=== PATIENT | female | born 1940 | race Caucasian/White ===

== ENCOUNTER → 2024-03-02 | Outpatient (CLI) | payer MEDICARE, BC ==
[2024-03-02 14:23] LABS: Basophils # (A) 0.04 X 10*3/uL (0.00-0.10); Basophils % (A) 0.6 %; Eosinophils # (A) 0.07 X 10*3/uL (0.04-0.35); Eosinophils % (A) 1.1 %; HGB 14.7 g/dL (12.0-15.0); Lymphocytes % (A) 12.4 %; MCH 31.2 pg (27.0-32.0); MCHC 32.7 g/dL (32.0-37.0); MCV 95.5 FL (80.0-97.0); Mean Platelet Volume 10.5 FL (9.5-12.2); Monocytes # (A) 0.75 X 10*3/uL (0.20-1.00); Monocytes % (A) 11.7 %; NRBC Per 100 WBC 0 X 10*3/uL (0.00-0.01); Neutrophils # (A) 4.76 X 10*3/uL (1.80-7.70); Platelet Count 240 X 10*3/uL (140-440); RBC 4.71 X 10*6/uL (4.10-5.20); RDW 13.2 % (11.5-14.5); WBC 6.43 X 10*3/uL (4.50-10.00)
[2024-03-02 14:39] LABS: ALT 17 U/L (8-44); AST 18 U/L (13-35); Albumin 4.2 g/dL (3.8-4.9); Albumin/Globulin Ratio 1.27 Ratio (1.60-3.17); Alkaline Phosphatase 106 U/L (41-126); BUN/Creat Ratio 17.12 Ratio (12.00-20.00); Blood Urea Nitrogen 13.7 mg/dL (9.0-27.0); Calcium 9.4 mg/dL (8.7-10.3); Carbon Dioxide 26.6 mmol/L (21.6-31.8); Chloride 102 mmol/L (96-109); Chol/HDL Ratio 4.12 Ratio; Globulin 3.3 g/dL (1.6-3.3); Glucose 110 mg/dL (70-110); LDL Cholesterol,Calculated 145.3 mg/dL (0.0-131.0); Potassium 4.4 mmol/L (3.5-5.5); Sodium 140 mmol/L (135-145); Total Bilirubin 0.7 mg/dL (0.3-1.2); Total Protein 7.5 g/dL (6.2-8.2)
== END | disposition home or self-care (01) ==
LOC: LABWHC1 09:59
PROVIDERS: ATTEND Internal Medicine
DX: Z11.59 Encounter for screening for other viral diseases (principal); E78.5 Hyperlipidemia, unspecified; R73.9 Hyperglycemia, unspecified
CPT/HCPCS: 36415; 80053; 80061; 83036; 85025; 86803

== ENCOUNTER → 2024-07-08 | Outpatient (CLI) | payer MEDICARE, BC ==
[2024-07-08 19:44] LABS: Appearance,Urine Clear (Clear); Bilirubin,Urine Negative (Negative); Blood,Urine Negative (Negative); Color,Urine Yellow (Yellow); Ketones,Urine 15 (Negative); Nitrite,Urine Negative (Negative); Specific Gravity,Urine 1.015 (1.001-1.030); Urobilinogen,Urine 0.2 E.U./DL
[2024-07-08 19:57] LABS: Bacteria,Urine None Seen (None Seen)
[2024-07-08 20:08] LABS: HCT 43.7 % (37.2-46.3); HGB 14.1 g/dL (12.0-15.0); MCH 30.7 pg (27.0-32.0); MCHC 32.3 g/dL (32.0-37.0); MCV 95.2 FL (80.0-97.0); Mean Platelet Volume 9.9 FL (9.5-12.2); NRBC Per 100 WBC 0 X 10*3/uL (0.00-0.01); Platelet Count 298 X 10*3/uL (140-440); RBC 4.59 X 10*6/uL (4.10-5.20); RDW 13.3 % (11.5-14.5); WBC 5.57 X 10*3/uL (4.50-10.00)
[2024-07-08 20:22] LABS: ALT 13 U/L (8-44); AST 15 U/L (13-35); Albumin/Globulin Ratio 1.11 Ratio (1.60-3.17); Alkaline Phosphatase 94 U/L (41-126); Blood Urea Nitrogen 14.3 mg/dL (9.0-27.0); Calcium 9.3 mg/dL (8.7-10.3); Carbon Dioxide 24.7 mmol/L (21.6-31.8); Chloride 98 mmol/L (96-109); Globulin 3.6 g/dL (1.6-3.3); Glucose 102 mg/dL (70-110); Potassium 4.4 mmol/L (3.5-5.5); Sodium 135 mmol/L (135-145); Total Bilirubin 0.4 mg/dL (0.3-1.2); Total Protein 7.6 g/dL (6.2-8.2)
== END | disposition home or self-care (01) ==
LOC: LABPAT 13:53
PROVIDERS: ATTEND Orthopaedic Surgery
CPT/HCPCS: 80053; 81001; 83036; 85027; 86850; 86900; 86901; 93005

== ENCOUNTER 2024-07-14 13:51 | Inpatient (IN) | payer MEDICARE, BC ==
[~2024-07-14 13:51] MED LIST: HYDROmorphone 0.5 MG/0.5 ML SYRINGE IVP PRN; LIDOCAINE 1% (10MG/ML) FOR IV START INTRADERMA PRN; ONDANSETRON 4 MG/2 ML VIAL IVP PRN; TRANEXAMIC 1,000 MG/100ML-NACL 1,000 MG in SALINE 1 100ML.BAG IV PRN; TRANEXAMIC 1,000 MG/100ML-NACL 1,000 MG in SALINE 1 100ML.BAG IVPB PRN; fentaNYL (PF) 50 MCG/ML 2 ML AMP IVP PRN
[2024-07-14] MEDS: ACETAMINOPHEN TAB 500 MG TAB PO PRN (14:51)
[2024-07-14] MEDS: DOCUSATE 100 MG CAP PO PRN (14:51)
[2024-07-14] MEDS: oxyCODONE ER 10 MG TAB.ER.12H PO PRN (14:52)
[2024-07-14] MEDS: LACTATED RINGERS 1,000 ML IV SCH (15:17)
[2024-07-14] MEDS: DEXAMETHASONE SOD PHOSPHATE 10 MG/ML 1 ML VIAL IV PRN (15:17)
[2024-07-14] MEDS: KETOROLAC 15 MG/ML 1 ML VIAL IVP PRN (15:17)
[2024-07-14] MEDS: FAMOTIDINE 20 MG/2 ML VIAL IVP PRN (15:17)
[2024-07-14] MEDS: ONDANSETRON 4 MG/2 ML VIAL IVP ONE (15:17)
[2024-07-14] MEDS: VANCOMYCIN 1,000 MG in SODIUM CHLORIDE 0.9% 250 ML IVPB PRN (15:22)
[2024-07-14] MEDS: MIDAZOLAM 2 MG/2 ML VIAL IV PRN (15:24)
[2024-07-14] MEDS: IV FLUID CONTINUATION 1,000 ML IV ONE (15:25)
--- NOTE | 2024-07-14 15:31 | P.ANPRN ---
Procedure Note - Anesthesia - Nerve Block Performed Left Víctor Single Date of Procedure: 07/14/24 Procedure Start Time: 15:22 Procedure Stop Time: 15:27 Location of Patient: PreOp Indication: Acute Post-Operative Pain, Analgesia, Requested by Surgeon Sedation Type: Sedate with meaningful contact maintained Preparation: Sterile Prep Position: Supine Catheter: None Needle Types: Pajunk Needle Gauge: 21 Ultrasound used to visualize needle placement: Yes Ultrasound used to observe medication spread: Yes Injectate: 0.5% Ropivacaine (see comment for volume) (Ropiv 20ml+Decadron 4mg.) Blood Aspirated: No Pain Paresthesia on Injection Noted: No Resistance on Injection: Normal Image Stored and Saved: Yes Events: Uneventful and Well Tolerated
[2024-07-14] MEDS ORDERED: GLYCOPYRROLATE 0.2 MG/ML 2 ML VIAL ONE (16:05)
[2024-07-14] MEDS ORDERED: ceFAZolin 1 GM/50 ML BAG (PMX) ONE (16:05)
[2024-07-14] MEDS ORDERED: ROCURONIUM 10 MG/ML (5 ML VIAL) IV ONE (16:05)
[2024-07-14] MEDS ORDERED: LIDOCAINE 1% INJ 10MG/ML (20 ML MDV) ONE (16:05)
[2024-07-14] MEDS ORDERED: ROPIVACAINE 5 MG/ML 30 ML VIAL ONE (16:05)
[2024-07-14] MEDS ORDERED: fentaNYL (PF) 50 MCG/ML 2 ML AMP ONE (16:05)
[2024-07-14] MEDS ORDERED: DEXAMETHASONE SOD PHOSPHATE 4 MG/ML 1 ML VIAL ONE (16:05)
[2024-07-14] MEDS ORDERED: NEOSTIGMINE 1 MG/ML 10 ML VIAL ONE (16:05)
[2024-07-14] MEDS ORDERED: PHENYLEPHRINE 10 MG/ML VIAL ONE (16:05)
[2024-07-14] MEDS ORDERED: SUCCINYLCHOLINE CHLORIDE 200 MG/10 ML VIAL IV ONE (16:05)
[2024-07-14] MEDS ORDERED: PROPOFOL 10 MG/ML 20 ML VIAL IV ONE (16:05)
[2024-07-14] MEDS ORDERED: ePHEDrine 50 MG/ML 1 ML VIAL ONE (16:05)
[2024-07-14] MEDS: SODIUM CHLORIDE 0.9% 100 ML with ceFAZolin 2,000 MG IV ONE (16:30)
[2024-07-14] MEDS: ROPIVACAINE/EPI/CLONIDINE/KET 50 ML SYRINGE MISCELLANE PRN (16:45)
[2024-07-14] MEDS: EPINEPHrine 2 MG in SODIUM CHLORIDE 0.9% 200 ML IV ONE (16:49)
[2024-07-14] MEDS ORDERED: NALOXONE 0.4 MG/ML 1 ML VIAL IV PRN (17:59)
[2024-07-14] MEDS ORDERED: HYDROmorphone 0.5 MG/0.5 ML SYRINGE IVP PRN ×2 (17:59)
[2024-07-14] MEDS ORDERED: MAGNESIUM HYDROXIDE 2,400 MG/30 ML CUP PO PRN (17:59)
[2024-07-14] MEDS ORDERED: hydrOXYzine pamoate 25 MG CAP PO PRN (17:59)
[2024-07-14] MEDS: LACTATED RINGERS 1,000 ML IV ONE (18:02)
--- NOTE | 2024-07-14 18:12 | FL ---
EXAMINATION TYPE: FL guidance operating room, XR Hip Limited LT DATE OF EXAM: 07/14/2024 6:06 PM COMPARISON: Pre Operative Images if available both CT/MRI or plain film CLINICAL INDICATION: Female, 84 years old with history of Left Hip-Ant; TECHNIQUE: FL guidance operating room, XR Hip Limited LT, multiple fluoroscopic images provided for p rocedure. Total fluoroscopy time: 36 seconds Total submitted images to PACS: 6 DAP: 0.9842 mGym2 Gycm2 uGym2 cGycm2 or equivalent. FINDINGS: Fluoroscopic images during internal fixation/arthroplasty demonstrate fixation hardware in appropriat e position. Hardware appears intact. No immediate complication identified. IMPRESSION: 1. No evidence for intraoperative complication. 2. Please see the operative/procedural note for further details. [facility], , 07/14/2024 6:10 PM
--- NOTE | 2024-07-14 18:17 | P.OP ---
Date of Procedure: 07/14/24 Preoperative Diagnosis: Severe left hip arthritis Postoperative Diagnosis: Same Procedure(s) Performed: left direct anterior total hip arthroplasty Implants: 1. Fili Trident II Acetabular Cup, Size #54 2. [place] Accolade C Size #5 Femoral Stem, High Offset 3. Biolox delta femoral head, 36 mm, -5mm neck Anesthesia: GLORIA, regional Surgeon: Oscar Clay Testing Analyst #1: Levy Sidhu Estimated Blood Loss (ml): 200 IV fluids (ml): 800 Pathology: none sent Condition: stable Disposition: PACU Indications for Procedure: I had a long discussion with the patient in the office on the potential risks and complications of an elective total hip replacement through a direct anterior approach. Risks discussed include, but are certainly not limited to, risks from anesthesia, superficial infection requiring local wound care or antibiotics, deep jason-prosthetic joint infection and the treatment required to eradicate infection, intraoperative fracture, postoperative periprosthetic fracture, da mage to local blood vessels or nerves particularly the lateral femoral cutaneous nerve, delayed wound healing requiring local wound care or possibly surgical debridement, hip dislocation, leg length discrepancy, soft tissue irritation around the total hip implant such as iliopsoas tendinitis or trochanteric bursitis, wear and osteolysis from the implants, squeaking or audible noises, groin pain, thigh pain, heterotopic ossification, stiffness, aseptic loosening of the implants, dissatisfaction with surgical outcome, need for revision surgery, DVT, PE, swelling of the operative extremity, acute coronary event, stroke, failure to thrive, and possibly loss of life or limb. The patient understands that while these are the most common complications after an elective hip replacement there are certainly other less common complications possible. They were given ample time to ask questions regarding the potential complications of a hip replacement. Following our discussion the patient provid ed their verbal and written consent to go forward with an elective total hip replacement. Description of Procedure: The patient was identified in the preoperative holding area and the correct hip was marked with my initials. I reviewed the procedure and consent with the patient. All of their questions were answered. The patient was then brought back into the operating room by anesthesia. While on the [facility] anesthesia was administered by the anesthesia team. Preoperative antibiotics and tranexamic acid were also given. After the patient was under anesthesia I examined their ankles to determine their preoperative leg length discrepancy. The skin over the anterior aspect of the hip was shaved to remove hair over the site of planned incision. Both feet and ankles were padded with webril and boots for the Soldier were applied. The patient was then carefully transferred onto the Soldier table. A perineal post was immediately placed. The arms were placed on arm holders and were well-padded. Both boots were secured to the spars on the Soldier table. The patient was positioned so that the pelvis was centered over the post. Nonsterile drapes were applied. A timeout was performed identifying the correct patient, operative extremity, and procedure. At this point fluoroscopy was brought in to take preoperative images of the pelvis and operative hip. Using the standing AP pelvis from the office as a template, a comparable image was obtained with fluoroscopy. A metallic bar was used to create a bi-ischial line for use as a reference to leg length adjustments during the procedure. Global offset was also measured on both the operative and nonoperative leg. Fluoroscopy was then brought out and a pre-scrub using a chlorhexidine scrub brush was performed. The operative limb was then prepped and draped in the standard sterile fashion. An anterior longitudinal incision was made lateral and distal to the ASIS. The skin and subcutaneous tissues were incised sharply. The underlying tensor fascia was identified and incised in its midportion. The fascia was dissected free from the underlying muscle and the muscle belly was retracted. A blunt tip ped cobra retractor was placed over the superior neck under the muscle fibers of the gluteus minimus. The deep enveloping fascia of the tensor was incised. The anterior leash of vessels were then identified and cauterized. The fascia between the rectus and the capsule was then incised and the pre-capsular fat was excised. A second Cobra was placed inferior to the neck. The interval between the rectus and iliocapsularis and the hip capsule was developed and a retractor was placed carefully over the anterior rim of the acetabulum. A T-shaped anterior capsulotomy was performed. The superior capsular leaflet was left in place in the inferior capsular flap was excised. The Cobra retractors were placed intracapsularly. We then made a femoral neck osteotomy according to preoperative and intraoperative templating and confirmed the level of the osteotomy using fluoroscopic imaging. The femoral head was removed, passed off to the back table, and sized. The superior capsular flap was excised. Retractors were placed circumferentially exposing the acetabulum. We then circumferentially debrided the acetabulum free of labrum and osteophytes. The pulvinar was removed to fully visualize the cotyloid fossa. We then sequentially reamed to achieve peripheral fit and excellent bleeding subchondral bone. The socket was thoroughly irrigated. The acetabular component was impacted into the appropriate position using fluoroscopy to guide version, inclination, and depth of insertion taking care to have a comparable image of the AP pelvis to the standing image taken in the office. An excellent press-fit was achieved and final position was confirmed using fluoroscopy. The press fit was augmented with bony cancellus dome screws. The liner was then impacted into the socket. Attention was then turned to the femur. The remnant dorsal lateral capsule was excised. The short external rotators were visible and protected. A bone hook was used to confirm appropriate translation of the trochanter away from the acetabulum. The leg was then extended and adducted and the bone hook was used to elevate the femur for broaching. On inspection of the patient's proximal femur, they appeared to have poor bone quality so I elected to proceed with cemented fixation of the femoral component. A box osteotome and blunt tipped canal sound was then utilized to gain access to the femoral canal. We then sequentially broached the femur in appropriate anteversion until torsional stability was achieved and the implant was felt to have reached the appropriate size to allow trialing. The neck cut was brought flush to the trial broach with a calcar planar. A trial neck and head were then placed onto the broach and the hip was atraumatically reduced under direct visualization. External rotation to 90 was performed to assess stability. Fluoroscopy was brought in. An AP and lateral fluoroscopic image of the proximal femur was obtained to assess position and fill of the trial broach. An AP of the pelvis was then obtained and matched to the preoperative image taken. A bi-ischial bar was then placed and measurements were taken to assess changes in length and offset. The hip was then carefully dislocated, the proximal femur was exposed, and the trial implants were removed. The proximal femur was then prepared for cementing. The canal was thoroughly irrigated with pulsatile lavage to remove blood and marrow contents. A cement restrictor was placed to a depth just distal to the tip of the final implant. Epinephrine-soaked gauze was then packed into the proximal femur. 2 bags of cement were then mixed using a centrifuge and placed into a cement gun. Anesthesia was notified that cementing was about to commence to make sure the patient was appropriately ventilated and hydrated. Once the cement had reached appropriate consistency, the cement gun was used to fill the canal in a retrograde fashion starting at the restrictor. Cement was then pressurized into the canal with a blue tipped administrative assistant coordinator. The stem was then carefully introduced into the cement taking care to guide the implant into appropriate version. The stem was held in position until the cement had fully set. All extra cement was removed while the cement was hardening. The trunnion was cleansed and the final head was tapped into place to engage the Loyd taper. The acetabulum was irrigated and visualized to be free of debris. The hip was carefully reduced. Stability was checked clinically with external rotation to 90 and there was no evidence of instability. Final fluoroscopic images were taken. The wound was then thoroughly irrigated and soaked with a dilute Betadine rinse for 3 minutes. 3 L of sterile saline was irrigated through the wound using pulsatile lavage. Local anesthetic cocktail was injected into the soft tissues around the surgical field. The wound was then closed in layers. A sterile dressing was placed over the surgical incision. The drapes were taken down and the patient was carefully transferred off of the Soldier table. Following removal of the boots the leg lengths felt acceptable. The patient was then taken to recovery room having tolerated the procedure well. Levy Sidhu PA-C was required as a skilled assistant professor of anthropology due to the complexity of surgery for patient positioning, draping, exposure, retraction, closure of wound, and application of dressing. PLAN: The patient can weight-bear as tolerated on the operative extremity. 2 doses of postoperative antibiotics. DVT prophylaxis with aspirin 81 mg twice a day based on preoperative risk stratification. Physical therapy for gait training.
[2024-07-14] MEDS: DEXAMETHASONE SOD PHOSPHATE 4 MG/ML 1 ML VIAL IV ONE (19:47)
[2024-07-14] MEDS: SODIUM CHLORIDE 0.9% 1,000 ML IV SCH (20:49)
[2024-07-14] MEDS: SENNOSIDES-DOCUSATE SODIUM 1 EACH TAB PO SCH (20:51)
[2024-07-14] MEDS: ASPIRIN 81 MG PO SCH (20:51)
--- NOTE | 2024-07-14 22:08 | P.CONS ---
History of Present Illness - Reason for Consult Consult date: 07/14/24 Medical management Requesting physician: Oscar Clay - Chief Complaint Left hip surgery - History of Present Illness Very pleasant 84-year-old patient who follows with Elise Trevizo. Patient is undergone left total hip arthroplasty. Postprocedure sitting up in bed. Comfortable. No nausea vomiting. No cardiac history.. Has a history of high cholesterol but manages it by diet Review of systems: GEN.: None EYES: None HEENT: None NECK: None RESPIRATORY: None CARDIOVASCULAR: None GASTROINTESTINAL: None GENITOURINARY: Urinary urgency MUSCULOSKELETAL: Joint pains LYMPHATICS: None HEMATOLOGICAL: None PSYCHIATRY: None NEUROLOGICAL: [Sometimes trouble sleeping Social history: Did smoke in the past. Lives alone. Physical examination: VITAL SIGNS: 97.3, 66, 12, 138 x 71, 98% room air GENERAL: BMI 26.3, reclining bed awake comfortable. EYES: Pupils equal. Conjunctiva iggi l. HEENT: External appearance of nose and ears normal, oral cavity grossly normal. NECK: JVD not raised; masses not palpable. HEART: First and second heart sounds are normal; no edema. LUNGS: Respiratory rate normal; clear to auscultation. ABDOMEN: Soft, nontender, liver spleen not palpable, no masses palpable. PSYCH: Alert and oriented x3; mood and affect gigi l. MUSCULOSKELETAL:No Clubbing/cyanosis;muscles-grossly intact. OA. Dressing over the left hip incision site NEUROLOGICAL: Cranial nerves grossly intact; no facial asymmetry, power and sensation grossly intact. LYMPHATICS: No lymph nodes palpable in the axilla and neck INVESTIGATIONS, reviewed in the clinical context: July 08, 2024: White count 5.5 hemoglobin 14.1 platelets 298 sodium 135 potassium 4.4 creatinine 1.1 Assessment plan: -Left total hip arthroplasty Pain management. Received 1 dose of Decadron. Aspirin for DVT prophylaxis. -Primary osteoarthritis Tylenol as needed -Insomnia Melatonin as needed -Chronic urinary urge incontinence Currently patient not requiring medications -Hypercholesteremia Diet controlled -Full code Care was discussed with patient. Questions answered. Thank you Dr. Clay Past Medical History Additional Past Medical History / Comment(s): recent tx for UTI per UA, 3 days bactrim, no symptoms per pt. recent episode of feeling weak and limp. no issues before or since. Dr Trevizo aware.( see HX), urinary urgency, left hip pain History of Any Multi-Drug Resistant Organisms: None Reported Past Surgical History: Hysterectomy Additional Past Surgical History / Comment(s): colonoscopy, Past Anesthesia/Blood Transfusion Reactions: No Reported Reaction Smoking Status: Former smoker - Past Family History Mother Family Medical History: Cancer Daughter(s) Family Medical History: Cancer Additional Family Medical History / Comment(s): uterine cancer Medications and Allergies Home Medications Medication Instructions Recorded Confirmed Type Aspirin 81 mg PO Q48H 07/09/24 07/09/24 History Mupirocin 2% Oint [Bactroban 2% 1 applic NASAL DIRECTED 07/09/24 07/14/24 History Oint] Unk Multi Vitamin 1 tab PO DAILY 07/09/24 07/09/24 History Unk Vitamin B12 1 tab PO DAILY 07/09/24 07/09/24 History Unk Vitamin D3 1 tab PO DAILY 07/09/24 07/09/24 History Allergies Allergy/AdvReac Type Severity Reaction Status Date / Time No Known Allergies Allergy Verified 07/14/24 12:52 Physical Exam Vitals: Vital Signs Temp Pulse Resp BP Pulse Ox 07/14/24 19:13 66 12 138/71 98 07/14/24 18:58 69 16 154/71 97 07/14/24 18:43 73 12 166/78 100 07/14/24 18:28 97.3 F L 86 16 176/81 100 07/14/24 15:28 59 L 16 136/68 98 07/14/24 15:06 98.1 F 66 18 180/93 98 Intake and Output 07/14/24 07/14/24 07/14/24 06:59 14:59 22:59 Intake Total 1201 Output Total 200 Balance 1001 Intake: IV 1201 Output: Estimated Blood Loss 200 Other: Weight 73.8 kg
[2024-07-15] MEDS: VANCOMYCIN 1,000 MG in SODIUM CHLORIDE 0.9% 250 ML IVPB ONE (04:22)
[2024-07-15] MEDS: HYDROcodone/APAP 5-325MG 1 EACH TAB PO PRN (08:00)
[2024-07-15] MEDS: FAMOTIDINE 20 MG TAB PO SCH (08:00)
--- NOTE | 2024-07-15 08:16 | P.PN ---
Subjective Progress Note Date: 07/15/24 Principal diagnosis: status post left total hip arthroplasty for left hip osteoarthritis on 07/14/2024. No acute events overnight. Patient is doing well this morning. The pain in their hip is mild. They have walked to the bathroom with a walker and assistance twice. They deny chest pain or shortness of breath. Objective - Vital Signs Vital signs: Vital Signs Temp 97.3 F L 07/15/24 00:15 Pulse 67 07/15/24 00:15 Resp 18 07/15/24 00:15 BP 100/63 07/15/24 00:15 Pulse Ox 94 L 07/15/24 00:15 FiO2 Intake & Output 07/14/24 07/15/24 07/15/24 18:59 06:59 18:59 Intake Total 1201 3240 Output Total 275 325 Balance 926 2915 Weight 73.8 kg Intake: IV 1201 Oral 3240 Output: Urine 75 325 Estimated Blood Loss 200 Other: Voiding Method Toilet # Voids 1 2 - Exam Patient was examined at bedside. Patient is resting comfortably in bed. No apparent distress. They are awake, alert and able to answer questions. On inspection the surgical hip dressing is intact, there is no drainage or strikethrough. The skin surrounding the dressing is free of erythema. There is mild swelling in the operative thigh. Operative femoral nerve function is intact. The patient is able to actively plantarflex and dorsiflex their operative ankle and toes. Their operative foot appears well perfused with capillary refill under 2 seconds. Assessment and Plan Assessment: Postop day #1 status post left total hip arthroplasty for left hip osteoarthritis on 07/14/2024. Plan: Weight-bear as tolerated on the operative extremity. Use a walker to ambulate. Leave surgical dressing in place. Physical therapy for gait training and mobilization. Internal medicine for perioperative medical management. Disposition: Pending physical therapy, I anticipate patient may discharge home or transfer to rehab tomorrow. As of now, plan to stay tonight.
[2024-07-15 08:41] LABS: Basophils # (A) 0.01 X 10*3/uL (0.00-0.10); Basophils % (A) 0.1 %; Eosinophils # (A) 0 X 10*3/uL (0.04-0.35); Eosinophils % (A) 0 %; HCT 35.9 % (37.2-46.3); HGB 11.7 g/dL (12.0-15.0); Lymphocytes # (A) 0.57 X 10*3/uL (0.90-5.00); Lymphocytes % (A) 3.5 %; MCH 30.9 pg (27.0-32.0); MCHC 32.6 g/dL (32.0-37.0); MCV 94.7 FL (80.0-97.0); Mean Platelet Volume 9.9 FL (9.5-12.2); Monocytes # (A) 0.66 X 10*3/uL (0.20-1.00); NRBC Per 100 WBC 0 X 10*3/uL (0.00-0.01); Neutrophils # (A) 15.09 X 10*3/uL (1.80-7.70); Neutrophils % (A) 91.7 %; Platelet Count 269 X 10*3/uL (140-440); RBC 3.79 X 10*6/uL (4.10-5.20); RDW 13.3 % (11.5-14.5); WBC 16.44 X 10*3/uL (4.50-10.00)
[2024-07-15] MEDS: SODIUM FERRIC GLUCONAT-SUCROSE 125 MG in SODIUM CHLORIDE 0.9% 100 ML IVPB ONE (12:40)
[2024-07-15] MEDS: FERROUS SULFATE 325 MG TAB PO SCH (15:50)
--- NOTE | 2024-07-15 15:53 | P.PN ---
Progress Note - Text Progress Note Date: 07/15/24 - Chief Complaint Left hip surgery - History of Present Illness Very pleasant 84-year-old patient who follows with Elise Trevizo. Patient is undergone left total hip arthroplasty. Postprocedure sitting up in bed. Comfortable. No nausea vomiting. No cardiac history.. Has a history of high cholesterol but manages it by diet July 15: Up in a recliner. Doing well. Did work with therapy. Pain controlled. No nausea vomiting. Did tolerate her breakfast. Hemoglobin dropped 11.7 from baseline of 14. Patient will be given 2 doses of IV Ferrlecit. Ferrous sulfate added. Active Medications Hydrocodone Bitart/Acetaminophen (Hydrocodone/Apap 5-325mg 1 Each Tab) 1 each PO Q6HR PRN PRN Reason: Pain Scale 1 to 5 Stop: 08/13/24 17:58 Last Admin: 07/15/24 14:04 Dose: 1 each Hydrocodone Bitart/Acetaminophen (Hydrocodone/Apap 10-325mg 1 Each Tab) 1 each PO Q6H PRN PRN Reason: Pain Scale 6 to 10 Stop: 08/13/24 17:58 Aspirin (Aspirin 81 Mg) 81 mg PO BID [facility] Stop: 08/13/24 20:59 Last Admin: 07/15/24 08:00 Dose: 81 mg Famotidine (Famotidine 20 Mg Tab) 20 mg PO DAILY [facility] Stop: 08/14/24 08:59 Last Admin: 07/15/24 08:00 Dose: 20 mg Hydromorphone HCl (Hydromorphone 0.5 Mg/0.5 Ml Syringe) 0.25 mg IVP Q3HR PRN PRN Reason: Pain Scale 4 to 6 Stop: 08/13/24 17:58 Hydromorphone HCl (Hydromorphone 0.5 Mg/0.5 Ml Syringe) 0.5 mg IVP Q3HR PRN PRN Reason: Pain Scale 7 to 10 Stop: 08/13/24 17:58 Hydromorphone HCl (Hydromorphone 0.5 Mg/0.5 Ml Syringe) 0.125 mg IVP Q3HR PRN PRN Reason: Pain Scale 1 to 3 Stop: 08/13/24 17:58 Hydroxyzine Pamoate (Hydroxyzine Pamoate 25 Mg Cap) 25 mg PO Q4HR PRN PRN Reason: Nausea, Anxiety, Pain Control Stop: 08/13/24 17:58 Lactated Ringer's (Lactated Ringers) 1,000 mls @ 20 mls/hr IV .Q24H [facility] Stop: 08/13/24 06:38 Last Admin: 07/15/24 08:00 Dose: Not Given Sodium Chloride (Saline 0.9%) 1,000 mls @ 100 mls/hr IV .Q10H [facility]NY Stop: 08/13/24 17:59 Last Admin: 07/15/24 14:07 Dose: Not Given Ferric Sodium Gluconate 125 mg (/ Sodium Chloride) 110 mls @ 100 mls/hr IVPB DAILY [facility] Lidocaine HCl (Lidocaine 1% (10mg/Ml) For Iv Start) 0.1 ml INTRADERMA PER PROTOCOL PRN PRN Reason: IV Start Stop: 08/13/24 06:38 Magnesium Hydroxide (Magnesium Hydroxide 2,400 Mg/30 Ml Cup) 2,400 mg PO DAILY PRN PRN Reason: Constipation Stop: 08/13/24 17:58 Naloxone HCl (Naloxone 0.4 Mg/Ml 1 Ml Vial) 0.2 mg IV Q2M PRN PRN Reason: Opioid Reversal Stop: 08/13/24 17:58 Senna/Docusate Sodium (Sennosides-Docusate Sodium 1 Each Tab) 2 each PO HS KENNY Stop: 08/13/24 20:59 Last Admin: 07/14/24 20:51 Dose: 2 each Social history: Did smoke in the past. Lives alone. Physical examination: VITAL SIGNS: 98.3, 69, 15, 93 x 59, 94% room GENERAL: Up in recliner, comfortable EYES: Pupils equal. Conjunctiva gigi l. HEENT: External appearance of nose and ears normal, oral cavity grossly normal. NECK: JVD not raised; masses not palpable. HEART: First and second heart sounds are normal; no edema. LUNGS: Respiratory rate normal; clear to auscultation. ABDOMEN: Soft, nontender, liver spleen not palpable, no masses palpable. PSYCH: Alert and oriented x3; mood and affect gigi l. MUSCULOSKELETAL:No Clubbing/cyanosis;muscles-grossly intact. OA. Dressing over the left hip incision site INVESTIGATIONS, reviewed in the clinical context: July 15: White count 16.4 hemoglobin 11.7 platelets 269 July 08, 2024: White count 5.5 hemoglobin 14.1 platelets 298 sodium 135 potassium 4.4 creatinine 1.1 Assessment plan: -Left total hip arthroplasty Pain management. Received 1 dose of Decadron. Aspirin for DVT prophylaxis -Acute postprocedure blood loss anemia expected from surgery IV Ferrlecit. Ferrous sulfate -Leukocytosis likely reactive. No clinical evidence of infection. No respiratory urinary symptoms.. -Primary osteoarthritis Tylenol as needed -Insomnia Melatonin as needed -Chronic urinary urge incontinence Currently patient not requiring medications -Hypercholesteremia Diet controlled -Full code IV iron. Discussed with patient. Thank you Dr. Clay Past Medical History Additional Past Medical History / Comment(s): recent tx for UTI per UA, 3 days bactrim, no symptoms per pt. recent episode of feeling weak and limp. no issues before or since. Dr Trevizo aware.( see HX), urinary urgency, left hip pain History of Any Multi-Drug Resistant Organisms: None Reported Past Surgical History: Hysterectomy Additional Past Surgical History / Comment(s): colonoscopy, Past Anesthesia/Blood Transfusion Reactions: No Reported Reaction Smoking Status: Former smoker
[2024-07-15] MEDS: HYDROmorphone 0.5 MG/0.5 ML SYRINGE IVP PRN (23:16)
--- NOTE | 2024-07-16 07:10 | P.PN ---
Subjective Progress Note Date: 07/16/24 Principal diagnosis: status post left total hip arthroplasty for left hip osteoarthritis on 07/14/2024. No acute events overnight. Patient is doing well this morning. Yesterday they worked with physical therapy and did very well, it was determined that the patient would transfer home on discharge. Patient states overnight there block wore off and they are experiencing more pain in their hip, it has been hurting with movement in bed. Objective - Vital Signs Vital signs: Vital Signs Temp 97.8 F 07/16/24 01:18 Pulse 63 07/16/24 01:18 Resp 14 07/16/24 05:46 BP 136/78 07/16/24 01:18 Pulse Ox 96 07/16/24 01:18 FiO2 Intake & Output 07/15/24 07/16/24 07/16/24 18:59 06:59 18:59 Intake Total 100 Balance 100 Intake: Intake, IV Titration 100 Amount Sodium Ferric Gluconat- 100 Sucrose 125 mg In Sodium Chloride 0.9% 100 ml @ 100 mls/hr IVPB DAILY [facility] Rx#:[id number] Other: Voiding Method Toilet Toilet # Voids 3 - Exam Patient was examined at bedside. Patient is resting comfortably in bed. No apparent distress. They are awake, alert and able to answer questions. On inspection the surgical hip dressing is intact, there is no drainage or strikethrough. The skin surrounding the dressing is free of erythema. There is mild swelling in the operative thigh. Operative femoral nerve function is intact. The patient is able to actively plantarflex and dorsiflex their operative ankle and toes. Their operative foot appears well perfused with capillary refill under 2 seconds. - Labs CBC & Chem 7: 07/15/24 04:03 Labs: Abnormal Lab Results - Last 24 Hours (Table) 07/15/24 Range/Units 04:03 WBC 16.44 H (4.50-10.00) X 10*3/uL RBC 3.79 L (4.10-5.20) X 10*6/uL Hgb 11.7 L (12.0-15.0) g/dL Hct 35.9 L (37.2-46.3) % Immature Gran # 0.11 H (0.00-0.04) X 10*3/uL Neutrophils # 15.09 H (1.80-7.70) X 10*3/uL Lymphocytes # 0.57 L (0.90-5.00) X 10*3/uL Eosinophils # 0 L (0.04-0.35) X 10*3/uL Assessment and Plan Assessment: Postop day #2 status post left total hip arthroplasty for left hip osteoarthritis on 07/14/2024. Plan: Weight-bear as tolerated on the operative extremity. Use a walker to ambulate. Leave surgical dressing in place. Yesterday they worked with physical therapy and did very well, it was determined that the patient would transfer home on discharge. Internal medicine for perioperative medical management. Disposition: Patient will discharge home at discharge. Plan stay tonight for pain control.
[2024-07-16] MEDS: HYDROcodone/APAP 10-325MG 1 EACH TAB PO PRN (08:08)
[2024-07-16] MEDS: SODIUM FERRIC GLUCONAT-SUCROSE 125 MG in SODIUM CHLORIDE 0.9% 100 ML IVPB SCH (11:44)
--- NOTE | 2024-07-16 16:02 | P.PN ---
Progress Note - Text Progress Note Date: 07/16/24 - Chief Complaint Left hip surgery - History of Present Illness Very pleasant 84-year-old patient who follows with Elise Trevizo. Patient is undergone left total hip arthroplasty. Postprocedure sitting up in bed. Comfortable. No nausea vomiting. No cardiac history.. Has a history of high cholesterol but manages it by diet July 15: Up in a recliner. Doing well. Did work with therapy. Pain controlled. No nausea vomiting. Did tolerate her breakfast. Hemoglobin dropped 11.7 from baseline of 14. Patient will be given 2 doses of IV Ferrlecit. Ferrous sulfate added. July 16: Saw the patient this morning. She was having increased pain in the left hip and could not even walk. Later this afternoon seen by PT OT. Patient is doing well. As per social economist patient should be able to be discharged home as she would not qualify for rehab as per Perforomist this afternoon. Eating well otherwise. Patient received IV Ferrlecit. Oral iron added. Active Medications Hydrocodone Bitart/Acetaminophen (Hydrocodone/Apap 5-325mg 1 Each Tab) 1 each PO Q6HR PRN PRN Reason: Pain Scale 1 to 5 Stop: 08/13/24 17:58 Last Admin: 07/15/24 21:04 Dose: 1 each Hydrocodone Bitart/Acetaminophen (Hydrocodone/Apap 10-325mg 1 Each Tab) 1 each PO Q6H PRN PRN Reason: Pain Scale 6 to 10 Stop: 08/13/24 17:58 Last Admin: 07/16/24 14:08 Dose: 1 each Aspirin (Aspirin 81 Mg) 81 mg PO BID [facility] Stop: 08/13/24 20:59 Last Admin: 07/16/24 08:08 Dose: 81 mg Famotidine (Famotidine 20 Mg Tab) 20 mg PO DAILY [facility] Stop: 08/14/24 08:59 Last Admin: 07/16/24 08:08 Dose: 20 mg Ferrous Sulfate (Ferrous Sulfate 325 Mg Tab) 325 mg PO W/LUNCH [facility] Last Admin: 07/16/24 14:08 Dose: 325 mg Hydromorphone HCl (Hydromorphone 0.5 Mg/0.5 Ml Syringe) 0.25 mg IVP Q3HR PRN PRN Reason: Pain Scale 4 to 6 Stop: 08/13/24 17:58 Hydromorphone HCl (Hydromorphone 0.5 Mg/0.5 Ml Syringe) 0.5 mg IVP Q3HR PRN PRN Reason: Pain Scale 7 to 10 Stop: 08/13/24 17:58 Last Admin: 07/16/24 04:34 Dose: 0.5 mg Hydromorphone HCl (Hydromorphone 0.5 Mg/0.5 Ml Syringe) 0.125 mg IVP Q3HR PRN PRN Reason: Pain Scale 1 to 3 Stop: 08/13/24 17:58 Hydroxyzine Pamoate (Hydroxyzine Pamoate 25 Mg Cap) 25 mg PO Q4HR PRN PRN Reason: Nausea, Anxiety, Pain Control Stop: 08/13/24 17:58 Lactated Ringer's (Lactated Ringers) 1,000 mls @ 20 mls/hr IV .Q24H [facility] Stop: 08/13/24 06:38 Last Admin: 07/16/24 05:47 Dose: Not Given Sodium Chloride (Saline 0.9%) 1,000 mls @ 100 mls/hr IV .Q10H [facility] Stop: 08/13/24 17:59 Last Admin: 07/16/24 14:26 Dose: Not Given Ferric Sodium Gluconate 125 mg (/ Sodium Chloride) 110 mls @ 100 mls/hr IVPB DAILY [facility] Last Admin: 07/16/24 11:44 Dose: 100 mls/hr Lidocaine HCl (Lidocaine 1% (10mg/Ml) For Iv Start) 0.1 ml INTRADERMA PER PROTOCOL PRN PRN Reason: IV Start Stop: 08/13/24 06:38 Magnesium Hydroxide (Magnesium Hydroxide 2,400 Mg/30 Ml Cup) 2,400 mg PO DAILY PRN PRN Reason: Constipation Stop: 08/13/24 17:58 Naloxone HCl (Naloxone 0.4 Mg/Ml 1 Ml Vial) 0.2 mg IV Q2M PRN PRN Reason: Opioid Reversal Stop: 08/13/24 17:58 Senna/Docusate Sodium (Sennosides-Docusate Sodium 1 Each Tab) 2 each PO HS [facility] Stop: 08/13/24 20:59 Last Admin: 07/15/24 21:04 Dose: 2 each Patient Social history: Did smoke in the past. Lives alone. Physical examination: VITAL SIGNS: 98.1, a 68, 16, 106 x 75, 97% room air GENERAL: Comfortable in bed EYES: Pupils equal. Conjunctiva gigi l. HEENT: External appearance of nose and ears normal, oral cavity grossly normal. NECK: JVD not raised; masses not palpable. HEART: First and second heart sounds are normal; no edema. LUNGS: Respiratory rate normal; clear to auscultation. ABDOMEN: Soft, nontender, liver spleen not palpable, no masses palpable. PSYCH: Alert and oriented x3; mood and affect gigi l. MUSCULOSKELETAL:No Clubbing/cyanosis;muscles-grossly intact. OA. Dressing over the left hip incision site INVESTIGATIONS, reviewed in the clinical context: July 15: White count 16.4 hemoglobin 11.7 platelets 269 July 08, 2024: White count 5.5 hemoglobin 14.1 platelets 298 sodium 135 potassium 4.4 creatinine 1.1 Assessment plan: -Left total hip arthroplasty Pain management. Received 1 dose of Decadron. Aspirin for DVT prophylaxis -Acute postprocedure blood loss anemia expected from surgery IV Ferrlecit-x 2 doses. Ferrous sulfate -Leukocytosis likely reactive. No clinical evidence of infection. No respiratory urinary symptoms.. -Primary osteoarthritis Tylenol as needed -Insomnia Melatonin as needed -Chronic urinary urge incontinence Currently patient not requiring medications -Hypercholesteremia Diet controlled -Full code, IV Ferrlecit. As per assessment by PT OT patient will go home later today. Thank you Dr. Clay Past Medical History Additional Past Medical History / Comment(s): recent tx for UTI per UA, 3 days bactrim, no symptoms per pt. recent episode of feeling weak and limp. no issues before or since. Dr Trevizo aware.( see HX), urinary urgency, left hip pain History of Any Multi-Drug Resistant Organisms: None Reported Past Surgical History: Hysterectomy Additional Past Surgical History / Comment(s): colonoscopy, Past Anesthesia/Blood Transfusion Reactions: No Reported Reaction Smoking Status: Former smoker
--- NOTE | 2024-07-17 08:37 | P.PN ---
Subjective patient was seen this morning. Her pain in the left hip is improved. The patient states that she is worried about going home as she lives alone and feels unsteady on her leg. Objective - Vital Signs Vital signs: Vital Signs Temp 99.2 F 07/17/24 07:02 Pulse 83 07/17/24 07:02 Resp 16 07/17/24 07:02 BP 155/83 07/17/24 07:02 Pulse Ox 97 07/17/24 07:02 FiO2 Intake & Output 07/16/24 07/17/24 07/17/24 18:59 06:59 18:59 Other: Voiding Method Toilet Toilet # Voids 1 2 1 # Bowel Movements 1 - Exam the patient is sitting up in a chair at bedside. She is alert and able to answer questions. A focused exam the left hip was conducted. The dressing over her hip is intact with no drainage or strike through. Her thigh is mildly swollen but soft and compressible. Femoral nerve function is intact. She is able to actively plantar flex and dorsiflex her ankle and her toes - Labs CBC & Chem 7: 07/15/24 04:03 Assessment and Plan Assessment: postoperative day #3 status post left direct anterior total hip arthroplasty Plan: continue treatment as outlined previously. I would like the patient reevaluated by physical therapy this morning to reassess discharge recommendations. She lives alone and is 84 and states she is feeling unsteady. She would likely benefit from a short stay at a senior care or rehab facility.
[2024-07-17 09:01] LABS: Basophils # (A) 0.02 X 10*3/uL (0.00-0.10); Basophils % (A) 0.4 %; Eosinophils # (A) 0.05 X 10*3/uL (0.04-0.35); Eosinophils % (A) 0.9 %; HCT 29.9 % (37.2-46.3); HGB 9.7 g/dL (12.0-15.0); Lymphocytes # (A) 1.04 X 10*3/uL (0.90-5.00); Lymphocytes % (A) 18.8 %; MCH 30.9 pg (27.0-32.0); MCHC 32.4 g/dL (32.0-37.0); MCV 95.2 FL (80.0-97.0); Monocytes # (A) 0.87 X 10*3/uL (0.20-1.00); Monocytes % (A) 15.8 %; NRBC Per 100 WBC 0 X 10*3/uL (0.00-0.01); Neutrophils # (A) 3.51 X 10*3/uL (1.80-7.70); Neutrophils % (A) 63.6 %; Platelet Count 202 X 10*3/uL (140-440); RBC 3.14 X 10*6/uL (4.10-5.20); RDW 13.9 % (11.5-14.5); WBC 5.52 X 10*3/uL (4.50-10.00)
--- NOTE | 2024-07-17 14:19 | P.PN ---
Progress Note - Text Progress Note Date: 07/17/24 - Chief Complaint Left hip surgery - History of Present Illness Very pleasant 84-year-old patient who follows with Elise Trevizo. Patient is undergone left total hip arthroplasty. Postprocedure sitting up in bed. Comfortable. No nausea vomiting. No cardiac history.. Has a history of high cholesterol but manages it by diet July 15: Up in a recliner. Doing well. Did work with therapy. Pain controlled. No nausea vomiting. Did tolerate her breakfast. Hemoglobin dropped 11.7 from baseline of 14. Patient will be given 2 doses of IV Ferrlecit. Ferrous sulfate added. July 16: Saw the patient this morning. She was having increased pain in the left hip and could not even walk. Later this afternoon seen by PT OT. Patient is doing well. As per social media senior associate patient should be able to be discharged home as she would not qualify for rehab as per Perforomist this afternoon. Eating well otherwise. Patient received IV Ferrlecit. Oral iron added. July 17: Patient has complaint of increased pain in the left hip when she walks. Seen again by physical therapy today. Did about 50 feet. Otherwise tolerating a diet. Otherwise doing well Active Medications Hydrocodone Bitart/Acetaminophen (Hydrocodone/Apap 5-325mg 1 Each Tab) 1 each PO Q6HR PRN PRN Reason: Pain Scale 1 to 5 Stop: 08/13/24 17:58 Last Admin: 07/15/24 21:04 Dose: 1 each Hydrocodone Bitart/Acetaminophen (Hydrocodone/Apap 10-325mg 1 Each Tab) 1 each PO Q6H PRN PRN Reason: Pain Scale 6 to 10 Stop: 08/13/24 17:58 Last Admin: 07/17/24 08:53 Dose: 1 each Aspirin (Aspirin 81 Mg) 81 mg PO BID [facility] Stop: 08/13/24 20:59 Last Admin: 07/17/24 08:53 Dose: 81 mg Famotidine (Famotidine 20 Mg Tab) 20 mg PO DAILY [facility] Stop: 08/14/24 08:59 Last Admin: 07/17/24 08:54 Dose: 20 mg Ferrous Sulfate (Ferrous Sulfate 325 Mg Tab) 325 mg PO W/LUNCH [facility] Last Admin: 07/17/24 12:33 Dose: 325 mg Hydromorphone HCl (Hydromorphone 0.5 Mg/0.5 Ml Syringe) 0.25 mg IVP Q3HR PRN PRN Reason: Pain Scale 4 to 6 Stop: 08/13/24 17:58 Hydromorphone HCl (Hydromorphone 0.5 Mg/0.5 Ml Syringe) 0.5 mg IVP Q3HR PRN PRN Reason: Pain Scale 7 to 10 Stop: 08/13/24 17:58 Last Admin: 07/16/24 04:34 Dose: 0.5 mg Hydromorphone HCl (Hydromorphone 0.5 Mg/0.5 Ml Syringe) 0.125 mg IVP Q3HR PRN PRN Reason: Pain Scale 1 to 3 Stop: 08/13/24 17:58 Hydroxyzine Pamoate (Hydroxyzine Pamoate 25 Mg Cap) 25 mg PO Q4HR PRN PRN Reason: Nausea, Anxiety, Pain Control Stop: 08/13/24 17:58 Lactated Ringer's (Lactated Ringers) 1,000 mls @ 20 mls/hr IV .Q24H [facility] Stop: 08/13/24 06:38 Last Admin: 07/17/24 05:46 Dose: Not Given Ferric Sodium Gluconate 125 mg (/ Sodium Chloride) 110 mls @ 100 mls/hr IVPB DAILY [facility] Last Admin: 07/17/24 08:54 Dose: 100 mls/hr Lidocaine HCl (Lidocaine 1% (10mg/Ml) For Iv Start) 0.1 ml INTRADERMA PER PROTOCOL PRN PRN Reason: IV Start Stop: 08/13/24 06:38 Magnesium Hydroxide (Magnesium Hydroxide 2,400 Mg/30 Ml Cup) 2,400 mg PO DAILY PRN PRN Reason: Constipation Stop: 08/13/24 17:58 Naloxone HCl (Naloxone 0.4 Mg/Ml 1 Ml Vial) 0.2 mg IV Q2M PRN PRN Reason: Opioid Reversal Stop: 08/13/24 17:58 Senna/Docusate Sodium (Sennosides-Docusate Sodium 1 Each Tab) 2 each PO HS [facility] Stop: 08/13/24 20:59 Last Admin: 07/16/24 20:56 Dose: 2 each Social history: Did smoke in the past. Lives alone. Physical examination: VITAL SIGNS: 99.2, 83, 16, 1 5583, 97% room air GENERAL: Sitting up in bed EYES: Pupils equal. Conjunctiva gigi l. HEENT: External appearance of nose and ears normal, oral cavity grossly normal. NECK: JVD not raised; masses not palpable. HEART: First and second heart sounds are normal; no edema. LUNGS: Respiratory rate normal; clear to auscultation. ABDOMEN: Soft, nontender, liver spleen not palpable, no masses palpable. PSYCH: Alert and oriented x3; mood and affect gigi l. MUSCULOSKELETAL:No Clubbing/cyanosis;muscles-grossly intact. OA. Dressing over the left hip incision site INVESTIGATIONS, reviewed in the clinical context: July 17: Hemoglobin 9.7 platelets 202 July 15: White count 16.4 hemoglobin 11.7 platelets 269 July 08, 2024: White count 5.5 hemoglobin 14.1 platelets 298 sodium 135 potassium 4.4 creatinine 1.1 Assessment plan: -Left total hip arthroplasty Pain management. Received 1 dose of Decadron. Aspirin for DVT prophylaxis -Acute postprocedure blood loss anemia expected from surgery IV Ferrlecit-x 2 doses. Ferrous sulfate -Leukocytosis likely reactive.: Improved No clinical evidence of infection. No respiratory urinary symptoms.. -Primary osteoarthritis Tylenol as needed -Insomnia Melatonin as needed -Chronic urinary urge incontinence Currently patient not requiring medications -Hypercholesteremia Diet controlled -Full code, Medically stable. Disposition per Ortho. Thank you Dr. Clay Past Medical History Additional Past Medical History / Comment(s): recent tx for UTI per UA, 3 days bactrim, no symptoms per pt. recent episode of feeling weak and limp. no issues before or since. Dr Trevizo aware.( see HX), urinary urgency, left hip pain History of Any Multi-Drug Resistant Organisms: None Reported Past Surgical History: Hysterectomy Additional Past Surgical History / Comment(s): colonoscopy, Past Anesthesia/Blood Transfusion Reactions: No Reported Reaction Smoking Status: Former smoker
[2024-07-17] MEDS: oxyCODONE-APAP 5-325MG 1 EACH TAB PO PRN (14:37)
--- NOTE | 2024-07-18 08:22 | P.PN ---
Subjective Doing well. No issues per patient or nursing. Objective - Vital Signs Vital signs: Vital Signs Temp 98.0 F 07/18/24 07:00 Pulse 68 07/18/24 07:00 Resp 17 07/18/24 07:00 BP 128/80 07/18/24 07:00 Pulse Ox 96 07/18/24 07:00 FiO2 Intake & Output 07/17/24 07/18/24 07/18/24 19:59 06:59 18:59 Intake Total Balance Intake: Oral Other: Voiding Method # Voids 1 # Bowel Movements - Exam The patient was able to ambulate with a walker from the bathroom and get herself into a chair. She was alert and able to answer questions. Motor and sensory function is intact. She is able to perform a straight leg lift on the operative leg. - Labs CBC & Chem 7: 07/17/24 05:28 Assessment and Plan Assessment: s/p DA ROBERTA, doing well. Plan: The patient is doing well and we discussed realistic expectations following total hip replacement. She lives alone, but since she did well with PT she did not qualify for rehab or SNF. She would like to stay one more night for add itional PT before d/c home tomorrow.
--- NOTE | 2024-07-18 14:20 | P.PN ---
Progress Note - Text Progress Note Date: 07/18/24 - Chief Complaint Left hip surgery - History of Present Illness Very pleasant 84-year-old patient who follows with Elise Trevizo. Patient is undergone left total hip arthroplasty. Postprocedure sitting up in bed. Comfortable. No nausea vomiting. No cardiac history.. Has a history of high cholesterol but manages it by diet July 15: Up in a recliner. Doing well. Did work with therapy. Pain controlled. No nausea vomiting. Did tolerate her breakfast. Hemoglobin dropped 11.7 from baseline of 14. Patient will be given 2 doses of IV Ferrlecit. Ferrous sulfate added. July 16: Saw the patient this morning. She was having increased pain in the left hip and could not even walk. Later this afternoon seen by PT OT. Patient is doing well. As per community mental health social worker patient should be able to be discharged home as she would not qualify for rehab as per Perforomist this afternoon. Eating well otherwise. Patient received IV Ferrlecit. Oral iron added. July 17: Patient has complaint of increased pain in the left hip when she walks. Seen again by physical therapy today. Did about 50 feet. Otherwise tolerating a diet. Otherwise doing well July 18: Spoke to the nurse. Patient is able to get up on her own go to the bathroom back to the chair. Some pain still present. Tolerating diet. Jared plan is to get discharge tomorrow. Otherwise stable. Active Medications Hydrocodone Bitart/Acetaminophen (Hydrocodone/Apap 5-325mg 1 Each Tab) 1 each PO Q6HR PRN PRN Reason: Pain Scale 1 to 5 Stop: 08/13/24 17:58 Last Admin: 07/15/24 21:04 Dose: 1 each Hydrocodone Bitart/Acetaminophen (Hydrocodone/Apap 10-325mg 1 Each Tab) 1 each PO Q6H PRN PRN Reason: Pain Scale 6 to 10 Stop: 08/13/24 17:58 Last Admin: 07/18/24 07:45 Dose: 1 each Aspirin (Aspirin 81 Mg) 81 mg PO BID [facility] Stop: 08/13/24 20:59 Last Admin: 07/18/24 07:45 Dose: 81 mg Famotidine (Famotidine 20 Mg Tab) 20 mg PO DAILY [facility] Stop: 08/14/24 08:59 Last Admin: 07/18/24 07:45 Dose: 20 mg Ferrous Sulfate (Ferrous Sulfate 325 Mg Tab) 325 mg PO W/LUNCH [facility] Last Admin: 07/18/24 07:46 Dose: 325 mg Hydromorphone HCl (Hydromorphone 0.5 Mg/0.5 Ml Syringe) 0.25 mg IVP Q3HR PRN PRN Reason: Pain Scale 4 to 6 Stop: 08/13/24 17:58 Hydromorphone HCl (Hydromorphone 0.5 Mg/0.5 Ml Syringe) 0.5 mg IVP Q3HR PRN PRN Reason: Pain Scale 7 to 10 Stop: 08/13/24 17:58 Last Admin: 07/16/24 04:34 Dose: 0.5 mg Hydromorphone HCl (Hydromorphone 0.5 Mg/0.5 Ml Syringe) 0.125 mg IVP Q3HR PRN PRN Reason: Pain Scale 1 to 3 Stop: 08/13/24 17:58 Hydroxyzine Pamoate (Hydroxyzine Pamoate 25 Mg Cap) 25 mg PO Q4HR PRN PRN Reason: Nausea, Anxiety, Pain Control Stop: 08/13/24 17:58 Ferric Sodium Gluconate 125 mg (/ Sodium Chloride) 110 mls @ 100 mls/hr IVPB DAILY [facility] Last Admin: 07/18/24 10:14 Dose: Not Given Lidocaine HCl (Lidocaine 1% (10mg/Ml) For Iv Start) 0.1 ml INTRADERMA PER PROTOCOL PRN PRN Reason: IV Start Stop: 08/13/24 06:38 Magnesium Hydroxide (Magnesium Hydroxide 2,400 Mg/30 Ml Cup) 2,400 mg PO DAILY PRN PRN Reason: Constipation Stop: 08/13/24 17:58 Naloxone HCl (Naloxone 0.4 Mg/Ml 1 Ml Vial) 0.2 mg IV Q2M PRN PRN Reason: Opioid Reversal Stop: 08/13/24 17:58 Oxycodone/Acetaminophen (Oxycodone-Apap 5-325mg 1 Each Tab) 1 each PO Q6HR PRN PRN Reason: Pain Last Admin: 07/17/24 14:37 Dose: 1 each Senna/Docusate Sodium (Sennosides-Docusate Sodium 1 Each Tab) 2 each PO HS [facility] Stop: 08/13/24 20:59 Last Admin: 07/17/24 20:28 Dose: 2 each Social history: Did smoke in the past. Lives alone. Physical examination: VITAL SIGNS: 8, 68, 17, 128 x 80, 96% room air GENERAL: In chair, comfortable EYES: Pupils equal. Conjunctiva gigi l. HEENT: External appearance of nose and ears normal, oral cavity grossly normal. NECK: JVD not raised; masses not palpable. HEART: First and second heart sounds are normal; no edema. LUNGS: Respiratory rate normal; clear to auscultation. ABDOMEN: Soft, nontender, liver spleen not palpable, no masses palpable. PSYCH: Alert and oriented x3; mood and affect gigi l. MUSCULOSKELETAL:No Clubbing/cyanosis;muscles-grossly intact. OA. Dressing over the left hip incision site INVESTIGATIONS, reviewed in the clinical context: July 17: Hemoglobin 9.7 platelets 202 July 15: White count 16.4 hemoglobin 11.7 platelets 269 July 08, 2024: White count 5.5 hemoglobin 14.1 platelets 298 sodium 135 potassium 4.4 creatinine 1.1 Assessment plan: -Left total hip arthroplasty Pain management. Received 1 dose of Decadron. Aspirin for DVT prophylaxis -Acute postprocedure blood loss anemia expected from surgery IV Ferrlecit-x 2 doses. Ferrous sulfate -Leukocytosis likely reactive.: Improved No clinical evidence of infection. No respiratory urinary symptoms.. -Primary osteoarthritis Tylenol as needed -Insomnia Melatonin as needed -Chronic urinary urge incontinence Currently patient not requiring medications -Hypercholesteremia Diet controlled -Full code, Medically stable. Disposition per Ortho. Thank you Dr. Clay Past Medical History Additional Past Medical History / Comment(s): recent tx for UTI per UA, 3 days bactrim, no symptoms per pt. recent episode of feeling weak and limp. no issues before or since. Dr Trevizo aware.( see HX), urinary urgency, left hip pain History of Any Multi-Drug Resistant Organisms: None Reported Past Surgical History: Hysterectomy Additional Past Surgical History / Comment(s): colonoscopy, Past Anesthesia/Blood Transfusion Reactions: No Reported Reaction Smoking Status: Former smoker
[2024-07-19 08:26] LABS: Basophils # (A) 0.03 X 10*3/uL (0.00-0.10); Basophils % (A) 0.6 %; Eosinophils # (A) 0.08 X 10*3/uL (0.04-0.35); Eosinophils % (A) 1.5 %; HCT 31.1 % (37.2-46.3); HGB 10.1 g/dL (12.0-15.0); Lymphocytes # (A) 0.89 X 10*3/uL (0.90-5.00); Lymphocytes % (A) 16.8 %; MCH 31.1 pg (27.0-32.0); MCHC 32.5 g/dL (32.0-37.0); MCV 95.7 FL (80.0-97.0); Mean Platelet Volume 9.9 FL (9.5-12.2); Monocytes # (A) 0.74 X 10*3/uL (0.20-1.00); Monocytes % (A) 13.9 %; NRBC Per 100 WBC 0 X 10*3/uL (0.00-0.01); Neutrophils # (A) 3.55 X 10*3/uL (1.80-7.70); Neutrophils % (A) 66.8 %; Platelet Count 249 X 10*3/uL (140-440); RBC 3.25 X 10*6/uL (4.10-5.20); RDW 13.6 % (11.5-14.5); WBC 5.31 X 10*3/uL (4.50-10.00)
--- NOTE | 2024-07-19 08:46 | P.DS ---
Providers Date of admission: 07/15/24 11:33 Attending physician: Oscar Clay Consults: 07/14/24 17:59 Consult Physician Routine Consulting Provider: Uziel Caceres Consult Reason/Comments: postop left total hip arthroplasty medical management Do you want consulting provider notified?: Yes Primary care physician: Irais Durbin [place] Course: Patient is a pleasant 84-year-old female who failed conservative management for left hip osteoarthritis. Patient presented to preop for scheduled left direct anterior total hip arthroplasty on 07/14/2024. Patient tolerated procedure well. Patient was transferred to the orthopedic floor. During the postop period the patient had some unsteadiness and some pain from the left hip surgery. Patient worked with physical therapy and it was determined she is not a candidate for short acute rehab. Patient remained in the hospital over the weekend for pain control and unsteadiness. Patient lives alone. Patient was examined at bedside this morning. Patient was awake alert and able to answer questions. Today patient states that they believe they are ready to be discharged home this afternoon. Patient states her pain has been controlled with oral pain medication. Patient surgical hip dressing is clean, dry, intact, and free of strikethrough, there is no surrounding erythema. Patient's left femoral nerve function is grossly intact. Patient's left foot is well-perfused with capillary refill under 2 seconds. Patient is able to plantarflex and dorsiflex the left ankle ankle and toes. Patient will have outpatient follow-up in 2 weeks. Assessment: Status post left total hip arthroplasty for left hip osteoarthritis Plan - Discharge Summary Discharge Rx Participant: No New Discharge Prescriptions: New Docusate [Colace] 100 mg PO BID #60 capsule HYDROcodone/APAP 5-325MG [[place] 5] 1 - 2 each PO Q6HR PRN #48 tab PRN Reason: Pain Omeprazole 20 mg PO DAILY #30 tab Ondansetron [Zofran] 4 mg PO Q6HR PRN #30 tab PRN Reason: Nausea Sennosides-Docusate Sodium [Senokot-S] 2 each PO HS #30 tab Ferrous Sulfate [Feosol] 325 mg PO DAILY #60 tab Aspirin 81 mg PO BID #60 tab Continue Mupirocin 2% Oint [Bactroban 2% Oint] 1 applic NASAL DIRECTED Unk Vitamin B12 1 tab PO DAILY Unk Vitamin D3 1 tab PO DAILY Unk Multi Vitamin 1 tab PO DAILY Discontinued Aspirin 81 mg PO Q48H Discharge Medication List Mupirocin 2% Oint [Bactroban 2% Oint] 1 applic NASAL DIRECTED 07/09/24 [History] Unk Multi Vitamin 1 tab PO DAILY 07/09/24 [History] Unk Vitamin B12 1 tab PO DAILY 07/09/24 [History] Unk Vitamin D3 1 tab PO DAILY 07/09/24 [History] Aspirin 81 mg PO BID #60 tab 07/15/24 [Rx] Docusate [Colace] 100 mg PO BID #60 capsule 07/15/24 [Rx] Ferrous Sulfate [Feosol] 325 mg PO DAILY #60 tab 07/15/24 [Rx] HYDROcodone/APAP 5-325MG [[place] 5] 1 - 2 each PO Q6HR PRN #48 tab 07/15/24 [Rx] Omeprazole 20 mg PO DAILY #30 tab 07/15/24 [Rx] Ondansetron [Zofran] 4 mg PO Q6HR PRN #30 tab 07/15/24 [Rx] Sennosides-Docusate Sodium [Senokot-S] 2 each PO HS #30 tab 07/15/24 [Rx] Follow up Appointment(s)/Referral(s): [facility] [NON-STAFF] - As Needed (walker) Irais Trevizo MD [Primary Care Provider] - 1 Week [facility], [NON-STAFF] - As Needed ([facility] will call you to schedule your in home physical therapy visits. ) Oscar Clay MD [Medical Doctor] - 2 Weeks Activity/Diet/Wound Care/Special Instructions: 1. Weight-bear as tolerated on your operative extremity unless instructed otherwise. Use a walker or other assistive device to ambulate. 2. Leave surgical dressing in place. If your dressing becomes saturated with blood, there is drainage, or the dressing becomes loose please contact the office. 3. It is okay to shower with your surgical dressing, but do not submerge in water (no hot tubs, bath's, swimming etc.) 4. Take your blood clot prevention medication as prescribed (aspirin, Eliquis, Xarelto, and Plavix are commonly prescribed medications for blood clot prevention) 5. While taking [place] or Percocet for pain take a stool softener (Ex: Colace) and drink lots of water. 6. Keep all follow-up appointments as scheduled. You will usually be seen in 1-2 weeks following surgery. 7. Please contact the office with any questions or concerns [phone] Discharge Disposition: HOME WITH HOME HEALTH SERVICES
[2024-07-19 13:50] VITALS: BP 147/80; PULSE 68; RESP 17; TEMP 97.9
--- NOTE | 2024-07-19 16:45 | P.PN ---
Progress Note - Text Progress Note Date: 07/19/24 - Chief Complaint Left hip surgery - History of Present Illness Very pleasant 84-year-old patient who follows with Elise Trevizo. Patient is undergone left total hip arthroplasty. Postprocedure sitting up in bed. Comfortable. No nausea vomiting. No cardiac history.. Has a history of high cholesterol but manages it by diet July 15: Up in a recliner. Doing well. Did work with therapy. Pain controlled. No nausea vomiting. Did tolerate her breakfast. Hemoglobin dropped 11.7 from baseline of 14. Patient will be given 2 doses of IV Ferrlecit. Ferrous sulfate added. July 16: Saw the patient this morning. She was having increased pain in the left hip and could not even walk. Later this afternoon seen by PT OT. Patient is doing well. As per social science research assistant patient should be able to be discharged home as she would not qualify for rehab as per Perforomist this afternoon. Eating well otherwise. Patient received IV Ferrlecit. Oral iron added. July 17: Patient has complaint of increased pain in the left hip when she walks. Seen again by physical therapy today. Did about 50 feet. Otherwise tolerating a diet. Otherwise doing well July 18: Spoke to the nurse. Patient is able to get up on her own go to the bathroom back to the chair. Some pain still present. Tolerating diet. Jared plan is to get discharge tomorrow. Otherwise stable. July 19: Patient did work with therapy. Pain is better. Plan is to send the patient home. Discussed with patient. No other issues. Medications reviewed Social history: Did smoke in the past. Lives alone. Physical examination: VITAL SIGNS: 97.9, 68, 17, 147 x 80, 95% room air GENERAL: Sitting up comfortable EYES: Pupils equal. Conjunctiva gigi l. HEENT: External appearance of nose and ears normal, oral cavity grossly normal. NECK: JVD not raised; masses not palpable. HEART: First and second heart sounds are normal; no edema. LUNGS: Respiratory rate normal; clear to auscultation. ABDOMEN: Soft, nontender, liver spleen not palpable, no masses palpable. PSYCH: Alert and oriented x3; mood and affect gigi l. MUSCULOSKELETAL:No Clubbing/cyanosis;muscles-grossly intact. OA. Dressing over the left hip incision site INVESTIGATIONS, reviewed in the clinical context: July 17: Hemoglobin 9.7 platelets 202 July 15: White count 16.4 hemoglobin 11.7 platelets 269 July 08, 2024: White count 5.5 hemoglobin 14.1 platelets 298 sodium 135 potassium 4.4 creatinine 1.1 Assessment plan: -Left total hip arthroplasty Pain management. Received 1 dose of Decadron. Aspirin for DVT prophylaxis -Acute postprocedure blood loss anemia expected from surgery IV Ferrlecit-x 2 doses. Ferrous sulfate -Leukocytosis likely reactive.: Improved No clinical evidence of infection. No respiratory urinary symptoms.. -Primary osteoarthritis Tylenol as needed -Insomnia Melatonin as needed -Chronic urinary urge incontinence Currently patient not requiring medications -Hypercholesteremia Diet controlled -Full code, Discussed. Follow-up with PCP. Thank you Dr. Clay Past Medical History Additional Past Medical History / Comment(s): recent tx for UTI per UA, 3 days bactrim, no symptoms per pt. recent episode of feeling weak and limp. no issues before or since. Dr Trevizo aware.( see HX), urinary urgency, left hip pain History of Any Multi-Drug Resistant Organisms: None Reported Past Surgical History: Hysterectomy Additional Past Surgical History / Comment(s): colonoscopy, Past Anesthesia/Blood Transfusion Reactions: No Reported Reaction Smoking Status: Former smoker
== END 2024-07-19 14:55 | disposition home health service (06) | DRG 470 ==
LOC: OR 13:51 → 4SSUR 18:04 → OR 07-15 11:33
PROVIDERS: ADMIT Orthopaedic Surgery; ATTEND Orthopaedic Surgery
PROC: 0SRB019 Replacement of Left Hip Joint with Metal Synthetic Substitute, Cemented, Open Approach (ICD-10-PCS; principal; 2024-07-15)
PROC: 3E0T3BZ Introduction of Anesthetic Agent into Peripheral Nerves and Plexi, Percutaneous Approach (ICD-10-PCS; 2024-07-15)
PROC: 8E0YXBF Computer Assisted Procedure of Lower Extremity, With Fluoroscopy (ICD-10-PCS; 2024-07-15)
DX: M16.12 Unilateral primary osteoarthritis, left hip (principal); D62 Acute posthemorrhagic anemia; E78.00 Pure hypercholesterolemia, unspecified; R32 Unspecified urinary incontinence; M19.90 Unspecified osteoarthritis, unspecified site; Z87.891 Personal history of nicotine dependence; G47.00 Insomnia, unspecified; Z79.82 Long term (current) use of aspirin; Z80.49 Family history of malignant neoplasm of other genital organs; Z90.710 Acquired absence of both cervix and uterus
CPT/HCPCS: 64447; 73501; 85025

== ENCOUNTER → 2024-11-11 | Outpatient (CLI) | payer MEDICARE, BC ==
[2024-11-11 15:21] LABS: Basophils # (A) 0.05 X 10*3/uL (0.00-0.10); Basophils % (A) 1.2 %; Eosinophils # (A) 0.12 X 10*3/uL (0.04-0.35); Eosinophils % (A) 2.9 %; HCT 44.3 % (37.2-46.3); HGB 14.3 g/dL (12.0-15.0); Lymphocytes # (A) 1.02 X 10*3/uL (0.90-5.00); Lymphocytes % (A) 24.3 %; MCH 30.5 pg (27.0-32.0); MCHC 32.3 g/dL (32.0-37.0); MCV 94.5 FL (80.0-97.0); Mean Platelet Volume 9.9 FL (9.5-12.2); Monocytes # (A) 0.44 X 10*3/uL (0.20-1.00); Monocytes % (A) 10.5 %; NRBC Per 100 WBC 0 X 10*3/uL (0.00-0.01); Neutrophils # (A) 2.54 X 10*3/uL (1.80-7.70); Neutrophils % (A) 60.6 %; Platelet Count 231 X 10*3/uL (140-440); RBC 4.69 X 10*6/uL (4.10-5.20); RDW 13.5 % (11.5-14.5); WBC 4.19 X 10*3/uL (4.50-10.00)
[2024-11-11 15:30] LABS: % Iron Saturation 30.63 (12.00-45.00)
== END | disposition home or self-care (01) ==
LOC: LABWHC1 08:32
PROVIDERS: ATTEND Internal Medicine
DX: D50.9 Iron deficiency anemia, unspecified (principal)
CPT/HCPCS: 36415; 83540; 83550; 85025

== ENCOUNTER → 2025-03-09 | Outpatient (CLI) | payer MEDICARE, BC ==
--- NOTE | 2025-03-09 10:32 | US ---
EXAMINATION TYPE: US venous doppler duplex LE LT DATE OF EXAM: 03/09/2025 10:22 AM COMPARISON: NONE CLINICAL INDICATION: Female, 84 years old with history of R60.0 LOCALIZED EDEMA; LT hip sx 07/14/2024 , LT leg swelling x 3 months, no hx of DVT, no blood thinners, Pain TECHNIQUE: The lower extremity deep venous system is examined utilizing real time linear array sonog caio with graded compression, color doppler sonography, and spectral doppler. SIDE PERFORMED: Left FINDINGS: VESSELS IMAGED: Common Femoral Vein Deep Femoral Vein Greater Saphenous Vein * Femoral Vein Popliteal Vein Small Saphenous Vein * Proximal Calf Veins (* superficial vessels) Left Leg: appears negative for DVT, Color Doppler imaging shows patency of the vessels. Spectral wav eforms are within normal limits. IMPRESSION: No evidence for DVT within the left lower extremity imaged from the groin to the upper calf. [facility], , 03/09/2025 10:29 AM
== END | disposition home or self-care (01) ==
LOC: RADUSWWP 09:43
PROVIDERS: ATTEND Orthopaedic Surgery
DX: R60.0 Localized edema (principal)

== ENCOUNTER → 2025-03-16 | Outpatient (CLI) | payer MEDICARE, BC ==
[2025-03-16 15:11] LABS: Basophils # (A) 0.05 X 10*3/uL (0.00-0.10); Basophils % (A) 1.3 %; Eosinophils # (A) 0.06 X 10*3/uL (0.04-0.35); Eosinophils % (A) 1.5 %; HCT 45.3 % (37.2-46.3); HGB 14.6 g/dL (12.0-15.0); Immature Grans, Automated 0 %; Lymphocytes # (A) 1.22 X 10*3/uL (0.90-5.00); Lymphocytes % (A) 30.5 %; MCH 30.8 pg (27.0-32.0); MCHC 32.2 g/dL (32.0-37.0); MCV 95.6 FL (80.0-97.0); Monocytes # (A) 0.48 X 10*3/uL (0.20-1.00); Monocytes % (A) 12.0 %; NRBC Per 100 WBC 0 X 10*3/uL (0.00-0.01); Neutrophils # (A) 2.19 X 10*3/uL (1.80-7.70); Neutrophils % (A) 54.7 %; Platelet Count 251 X 10*3/uL (140-440); RBC 4.74 X 10*6/uL (4.10-5.20); RDW 13.1 % (11.5-14.5); WBC 4.00 X 10*3/uL (4.50-10.00)
[2025-03-16 15:29] LABS: BUN/Creat Ratio 12.67 Ratio (12.00-20.00); Blood Urea Nitrogen 11.4 mg/dL (9.0-27.0); Cholesterol 225.00 mg/dL (0.00-200.00); Glucose 104 mg/dL (70-110); HDL Cholesterol 62.40 mg/dL (40.00-60.00); LDL Cholesterol,Calculated 139.2 mg/dL (0.0-131.0); Triglycerides 117.00 mg/dL (0.00-149.00); VLDL Calculation 23.40 mg/dL (5.00-40.00)
[2025-03-16 15:30] LABS: ALT 13 U/L (8-44); AST 17 U/L (13-35); Albumin 4.1 g/dL (3.8-4.9); Albumin/Globulin Ratio 1.32 Ratio (1.60-3.17); Alkaline Phosphatase 87 U/L (41-126); Anion Gap 11.80 mmol/L (4.00-12.00); Calcium 9.4 mg/dL (8.7-10.3); Carbon Dioxide 28.2 mmol/L (21.6-31.8); Chloride 104 mmol/L (96-109); Globulin 3.1 g/dL (1.6-3.3); Potassium 4.4 mmol/L (3.5-5.5); Sodium 144 mmol/L (135-145); Total Protein 7.2 g/dL (6.2-8.2)
== END | disposition home or self-care (01) ==
LOC: LABWHC1 09:17
PROVIDERS: ATTEND Internal Medicine
DX: Z11.59 Encounter for screening for other viral diseases (principal); E78.5 Hyperlipidemia, unspecified; R73.9 Hyperglycemia, unspecified
CPT/HCPCS: 36415; 80053; 80061; 83036; 85025; 86803